=== PATIENT | female | born 1970 | race Caucasian/White ===

== ENCOUNTER → 2016-06-11 | Outpatient (REF) | payer BC ==
[2016-06-11 12:12] LABS: ALBUMIN 3.5 GM/DL (3.2-5.2); ALBUMIN/GLOBULIN RATIO 1.09 (1.00-1.93); ALKALINE PHOSPHATASE 74 U/L (45-117); ALT/SGPT 42 U/L (12-78); ANION GAP 6 MEQ/L (8-16); AST/SGOT 27 U/L (15-37); BILIRUBIN,TOTAL 0.3 MG/DL (0.2-1.0); BLOOD UREA NITROGEN 17 MG/DL (7-18); CALCIUM LEVEL 9.6 MG/DL (8.5-10.1); CARBON DIOXIDE LEVEL 30 MEQ/L (21-32); CHLORIDE LEVEL 108 MEQ/L (98-107); GLOMERULAR FILTRATION RATE > 60.0 (>58); GLUCOSE, FASTING 77 MG/DL (70-105); POTASSIUM SERUM 5.1 MEQ/L (3.5-5.1); SODIUM LEVEL 144 MEQ/L (136-145); TOTAL PROTEIN 6.7 GM/DL (6.4-8.2)
[2016-06-13 00:06] LABS: %CD3+CD4+CD8+ 1.9 % (Not Estab.); %CD3+CD4+CD8- 26.6 % (Not Estab.); %CD3+CD4-CD8+ 44.5 % (Not Estab.); ABS CD3+CD4+CD8+ 29 /uL (Not Estab.); ABS CD3+CD4+CD8- 399 /uL (Not Estab.); ABS CD3+CD4-CD8+ 668 /uL (Not Estab.); ABS CD3+CD4-CD8- 15 /uL (Not Estab.); Eosinophils 1 % (.); HCT 41.4 % (34.0-46.6); HGB 13.8 g/dL (11.1-15.9); Monocytes 9 % (.); Neutrophils 55 % (.); WBC 4.3 x10E3/uL (3.4-10.8)
== END ==
LOC: M SFHCPLAZ 11:29
PROVIDERS: ATTEND Internal Medicine Infectious Disease
DX: B20 Human immunodeficiency virus [HIV] disease (principal)

== ENCOUNTER → 2016-10-21 | Outpatient (REF) | payer BC ==
[2016-10-21 12:12] LABS: ALBUMIN 3.3 GM/DL (3.2-5.2); ALBUMIN/GLOBULIN RATIO 0.97 (1.00-1.93); ALKALINE PHOSPHATASE 76 U/L (45-117); ALT/SGPT 38 U/L (12-78); ANION GAP 5 MEQ/L (8-16); AST/SGOT 30 U/L (15-37); BILIRUBIN,TOTAL 0.3 MG/DL (0.2-1.0); BLOOD UREA NITROGEN 19 MG/DL (7-18); CALCIUM LEVEL 9.2 MG/DL (8.5-10.1); CARBON DIOXIDE LEVEL 31 MEQ/L (21-32); CHLORIDE LEVEL 105 MEQ/L (98-107); CREATININE FOR GFR 0.73 MG/DL (0.55-1.02); GLOMERULAR FILTRATION RATE > 60.0 (>58); GLUCOSE, FASTING 61 MG/DL (70-105); MAGNESIUM LEVEL 2.3 MG/DL (1.8-2.4); POTASSIUM SERUM 4.3 MEQ/L (3.5-5.1); SODIUM LEVEL 141 MEQ/L (136-145); TOTAL PROTEIN 6.7 GM/DL (6.4-8.2)
[2016-10-24 00:07] LABS: %CD3+CD4+CD8- 32.6 % (Not Estab.); %CD3+CD4-CD8+ 40.2 % (Not Estab.); %CD3+CD4-CD8- 1.1 % (Not Estab.); ABS CD3+CD4+CD8+ 26 /uL (Not Estab.); ABS CD3+CD4+CD8- 424 /uL (Not Estab.); ABS CD3+CD4-CD8+ 523 /uL (Not Estab.); ABS CD3+CD4-CD8- 14 /uL (Not Estab.); CD4/CD8 NYSDOH RATIO 0.81 (Not Estab.); Eosinophils 2 % (.); HCT 40.8 % (34.0-46.6); HGB 13.4 g/dL (11.1-15.9); Monocytes 10 % (.); Neutrophils 60 % (.); WBC 4.8 x10E3/uL (3.4-10.8)
== END ==
LOC: M SFHCPLAZ 08:46
PROVIDERS: ATTEND Internal Medicine Infectious Disease
DX: B20 Human immunodeficiency virus [HIV] disease (principal)

== ENCOUNTER → 2017-02-17 | Outpatient (REF) | payer BC ==
[2017-02-17 12:26] LABS: ALBUMIN 3.4 GM/DL (3.2-5.2); ALKALINE PHOSPHATASE 73 U/L (45-117); ALT/SGPT 52 U/L (12-78); ANION GAP 3 MEQ/L (8-16); AST/SGOT 26 U/L (15-37); BILIRUBIN,TOTAL 0.4 MG/DL (0.2-1.0); BLOOD UREA NITROGEN 16 MG/DL (7-18); CARBON DIOXIDE LEVEL 31 MEQ/L (21-32); CHLORIDE LEVEL 107 MEQ/L (98-107); CHOLESTEROL LEVEL 129 MG/DL (<200); CREATININE FOR GFR 0.76 MG/DL (0.55-1.02); GLOMERULAR FILTRATION RATE > 60.0 (>58); GLUCOSE, FASTING 79 MG/DL (70-105); POTASSIUM SERUM 4.4 MEQ/L (3.5-5.1); SODIUM LEVEL 141 MEQ/L (136-145); TOTAL PROTEIN 6.8 GM/DL (6.4-8.2); TRIGLYCERIDES LEVEL 92 MG/DL (<150)
[2017-02-20 00:07] LABS: Eosinophils 0 % (Not Estab.); HCT 42.1 % (34.0-46.6); HGB 13.7 g/dL (11.1-15.9); Monocytes 7 % (Not Estab.); Neutrophils 61 % (Not Estab.); WBC 4.6 x10E3/uL (3.4-10.8)
== END ==
LOC: M SFHCPLAZ 09:39
PROVIDERS: ATTEND Internal Medicine Infectious Disease
DX: B20 Human immunodeficiency virus [HIV] disease (principal); R04.0 Epistaxis

== ENCOUNTER → 2017-04-04 | Outpatient (REF) | payer BC ==
[2017-04-04 19:28] LABS: ALBUMIN 3.4 GM/DL (3.2-5.2); ALKALINE PHOSPHATASE 60 U/L (45-117); ALT/SGPT 36 U/L (12-78); AST/SGOT 25 U/L (7-37); BILIRUBIN,DIRECT < 0.1 MG/DL (0.0-0.2); BILIRUBIN,TOTAL 0.2 MG/DL (0.2-1.0); TOTAL PROTEIN 6.5 GM/DL (6.4-8.2)
== END ==
LOC: M SFHCLERA 13:34
PROVIDERS: ATTEND Dermatology
DX: L60.9 Nail disorder, unspecified (principal)

== ENCOUNTER → 2017-06-02 | Outpatient (REF) | payer BC ==
[2017-06-02 22:00] LABS: ALBUMIN/GLOBULIN RATIO 1.18 (1.00-1.93); ALKALINE PHOSPHATASE 79 U/L (45-117); ALT/SGPT 34 U/L (12-78); AST/SGOT 31 U/L (7-37); BILIRUBIN,DIRECT < 0.1 MG/DL (0.0-0.2); BILIRUBIN,TOTAL 0.2 MG/DL (0.2-1.0); TOTAL PROTEIN 7.4 GM/DL (6.4-8.2)
== END ==
LOC: M SFHCLERA 18:26
DX: L60.9 Nail disorder, unspecified (principal)
CPT/HCPCS: 80076

== ENCOUNTER → 2017-06-30 | Outpatient (REF) | payer BC ==
[2017-06-30 12:50] LABS: ALBUMIN 3.8 GM/DL (3.2-5.2); ALBUMIN/GLOBULIN RATIO 1.12 (1.00-1.93); ALKALINE PHOSPHATASE 79 U/L (45-117); ALT/SGPT 35 U/L (12-78); ANION GAP 7 MEQ/L (8-16); AST/SGOT 23 U/L (7-37); BILIRUBIN,TOTAL 0.3 MG/DL (0.2-1.0); BLOOD UREA NITROGEN 23 MG/DL (7-18); CALCIUM LEVEL 9.3 MG/DL (8.5-10.1); CARBON DIOXIDE LEVEL 29 MEQ/L (21-32); CHLORIDE LEVEL 107 MEQ/L (98-107); CREATININE FOR GFR 0.84 MG/DL (0.55-1.30); GLOMERULAR FILTRATION RATE > 60.0 (>58); GLUCOSE, FASTING 80 MG/DL (70-100); POTASSIUM SERUM 4.4 MEQ/L (3.5-5.1); SODIUM LEVEL 143 MEQ/L (136-145); TOTAL PROTEIN 7.2 GM/DL (6.4-8.2)
[2017-06-30 12:54] LABS: TOTAL 25(OH) VITAMIN D 23.5 NG/ML (30.0-100.0)
[2017-06-30 12:55] LABS: VITAMIN B12 LEVEL 1174 PG/ML
[2017-06-30 12:56] LABS: FOLATE > 24.0 NG/ML
[2017-06-30 13:04] LABS: APPEARANCE, URINE HAZY (CLEAR); BACTERIA, URINE AUTO NEGATIVE (NEGATIVE); BILIRUBIN, URINE AUTO NEGATIVE (NEGATIVE); BLOOD, URINE BLOOD NEGATIVE (NEGATIVE); COLOR, URINE YELLOW (YELLOW); GLUCOSE, URINE (UA) AUTO NEGATIVE (NEGATIVE); KETONE, URINE AUTO NEGATIVE (NEGATIVE); LEUKOCYTE ESTERASE, URINE AUTO NEGATIVE (NEGATIVE); MUCUS, URINE SMALL (NEGATIVE); NITRITE, URINE AUTO NEGATIVE (NEGATIVE); PROTEIN, URINE AUTO NEGATIVE (NEGATIVE); RBC, URINE AUTO 0 /HPF (0-3); SPECIFIC GRAVITY URINE AUTO 1.027 (1.002-1.035); SQUAMOUS EPITHELIAL CELL UR AU 0 /HPF (0-6); UROBILINOGEN, URINE AUTO 0.2 mg/dL (0.0-2.0); WBC, URINE AUTO 0 /HPF (0-3)
[2017-06-30 13:54] LABS: CHLAMYDIA DNA AMPLIFICATION NEGATIVE (NEGATIVE); GC DNA AMPLIFICATION NEGATIVE (NEGATIVE)
[2017-07-02 08:18] LABS: QUANTIFERON GOLD TB Negative (Negative); TB Test (QFT) Antigen 0.03 IU/mL (.); TB Test (QFT) Mitogen >10.00 IU/mL (.); TB Test (QFT) Nil 0.03 IU/mL (.)
[2017-07-02 14:13] LABS: % CD8 Pos Lymph 41.3 % (12.0-35.5); %CD4 Pos Lymphs 33.1 % (30.8-58.5); ABS Lymphs 1.4 x10E3/uL (0.7-3.1); ABS Monocytes 0.4 x10E3/uL (0.1-0.9); Abs CD4 Helper 463 /uL (359-1519); Abs CD8 Suppres 578 /uL (109-897); Eosinophils 1 % (Not Estab.); HCT 43.6 % (34.0-46.6); HGB 14.3 g/dL (11.1-15.9); HIV-1 RNA PCR QUANT 2 LC550285 <20 copies/mL (.); Immature Grans 0 % (Not Estab.); Lymphocytes 29 % (Not Estab.); MCHC 32.8 g/dL (31.5-35.7); MCV 104 fL (79-97); Monocytes 9 % (Not Estab.); Neutrophils 61 % (Not Estab.); Platelets 189 x10E3/uL (150-379); RBC 4.21 x10E6/uL (3.77-5.28); RDW 14.5 % (12.3-15.4); WBC 4.9 x10E3/uL (3.4-10.8)
== END ==
LOC: M SFHCPLAZ 08:30
DX: B20 Human immunodeficiency virus [HIV] disease (principal)
CPT/HCPCS: 82746

== ENCOUNTER → 2017-07-02 | Outpatient (REF) | payer BC | LOC: M SFHCLERA 15:17 | DX: L30.8 Other specified dermatitis (principal) | CPT/HCPCS: 87186 ==

== ENCOUNTER → 2017-09-23 | Outpatient (REF) | payer BC | LOC: M SFHCPLAZ 11:27 | DX: R23.8 Other skin changes (principal); J02.9 Acute pharyngitis, unspecified | CPT/HCPCS: 87529 ==

== ENCOUNTER → 2017-10-06 | Outpatient (REF) | payer BC | LOC: M SFHCLERA 21:00 | DX: L73.8 Other specified follicular disorders (principal) | CPT/HCPCS: 87077 ==

== ENCOUNTER → 2017-11-03 | Outpatient (REF) | payer BC ==
[2017-11-03 11:50] LABS: TOTAL 25(OH) VITAMIN D 41.5 NG/ML (30.0-100.0); VITAMIN B12 LEVEL 714 PG/ML (247-911)
[2017-11-03 12:23] LABS: ALBUMIN 3.3 GM/DL (3.2-5.2); ALKALINE PHOSPHATASE 75 U/L (45-117); ALT/SGPT 30 U/L (12-78); ANION GAP 8 MEQ/L (8-16); AST/SGOT 27 U/L (7-37); BILIRUBIN,TOTAL 0.2 MG/DL (0.2-1.0); BLOOD UREA NITROGEN 14 MG/DL (7-18); CALCIUM LEVEL 9.3 MG/DL (8.5-10.1); CARBON DIOXIDE LEVEL 28 MEQ/L (21-32); CHLORIDE LEVEL 109 MEQ/L (98-107); CREATININE FOR GFR 0.76 MG/DL (0.55-1.30); FERRITIN 13 NG/ML (8-252); GLOMERULAR FILTRATION RATE > 60.0 (>58); GLUCOSE, FASTING 81 MG/DL (70-100); IRON (FE) 62 UG/DL (50-170); SODIUM LEVEL 145 MEQ/L (136-145); TOTAL IRON BINDING CAPACITY 388 UG/DL (250-450); TOTAL PROTEIN 6.6 GM/DL (6.4-8.2)
[2017-11-05 14:12] LABS: % CD8 Pos Lymph 40.6 % (12.0-35.5); %CD4 Pos Lymphs 30.6 % (30.8-58.5); ABS Eosinophils 0.1 x10E3/uL (0.0-0.4); ABS Lymphs 1.2 x10E3/uL (0.7-3.1); ABS Monocytes 0.3 x10E3/uL (0.1-0.9); ABS Neutophils 2.2 x10E3/uL (1.4-7.0); Abs CD4 Helper 367 /uL (359-1519); Abs CD8 Suppres 487 /uL (109-897); CD4/CD8 Ratio 0.75 (0.92-3.72); Eosinophils 2 % (Not Estab.); HCT 40.5 % (34.0-46.6); HGB 13.6 g/dL (11.1-15.9); HIV-1 RNA PCR QUANT 2 LC550285 <20 copies/mL (.); Immature Grans 0 % (Not Estab.); Lymphocytes 32 % (Not Estab.); MCHC 33.6 g/dL (31.5-35.7); MCV 101 fL (79-97); Monocytes 8 % (Not Estab.); Neutrophils 58 % (Not Estab.); Platelets 157 x10E3/uL (150-379); RDW 14.6 % (12.3-15.4); WBC 3.8 x10E3/uL (3.4-10.8)
== END ==
LOC: M SFHCPLAZ 08:27
DX: B20 Human immunodeficiency virus [HIV] disease (principal)
CPT/HCPCS: 83550

== ENCOUNTER → 2018-05-26 | Outpatient (REF) | payer OTHER ==
[2018-05-26 18:56] LABS: ALBUMIN 3.6 GM/DL (3.2-5.2); ALT/SGPT 36 U/L (12-78); BILIRUBIN,TOTAL 0.4 MG/DL (0.2-1.0); BLOOD UREA NITROGEN 16 MG/DL (7-18); CALCIUM LEVEL 9.4 MG/DL (8.5-10.1); CARBON DIOXIDE LEVEL 30 MEQ/L (21-32); CHLORIDE LEVEL 106 MEQ/L (98-107); CREATININE FOR GFR 0.91 MG/DL (0.55-1.30); GLOMERULAR FILTRATION RATE > 60.0 (>58); GLUCOSE, FASTING 91 MG/DL (70-100); POTASSIUM SERUM 4.8 MEQ/L (3.5-5.1); SODIUM LEVEL 142 MEQ/L (136-145)
[2018-05-26 19:31] LABS: APPEARANCE, URINE CLEAR (CLEAR); BACTERIA, URINE AUTO NEGATIVE (NEGATIVE); BILIRUBIN, URINE AUTO NEGATIVE (NEGATIVE); BLOOD, URINE BLOOD NEGATIVE (NEGATIVE); COLOR, URINE YELLOW (YELLOW); GLUCOSE, URINE (UA) AUTO NEGATIVE (NEGATIVE); KETONE, URINE AUTO TRACE mg/dL (NEGATIVE); LEUKOCYTE ESTERASE, URINE AUTO NEGATIVE (NEGATIVE); NITRITE, URINE AUTO NEGATIVE (NEGATIVE); PROTEIN, URINE AUTO NEGATIVE (NEGATIVE); RBC, URINE AUTO 1 /HPF (0-3); SPECIFIC GRAVITY URINE AUTO 1.015 (1.002-1.035); SQUAMOUS EPITHELIAL CELL UR AU 0 /HPF (0-6); UROBILINOGEN, URINE AUTO 0.2 mg/dL (0.0-2.0); WBC, URINE AUTO 1 /HPF (0-3)
[2018-05-30 00:08] LABS: % CD8 Pos Lymph 42.3 % (12.0-35.5); %CD4 Pos Lymphs 31.6 % (30.8-58.5); ABS Eosinophils 0.1 x10E3/uL (0.0-0.4); ABS Lymphs 1.6 x10E3/uL (0.7-3.1); ABS Monocytes 0.4 x10E3/uL (0.1-0.9); ABS Neutophils 3.5 x10E3/uL (1.4-7.0); Abs CD4 Helper 506 /uL (359-1519); Abs CD8 Suppres 677 /uL (109-897); CD4/CD8 Ratio 0.75 (0.92-3.72); Eosinophils 1 % (Not Estab.); HCT 43.6 % (34.0-46.6); HIV-1 RNA PCR QUANT 2 LC550285 <20 copies/mL (.); Immature Grans 0 % (Not Estab.); Lymphocytes 29 % (Not Estab.); MCH 33.2 pg (26.6-33.0); MCHC 32.1 g/dL (31.5-35.7); MCV 103 fL (79-97); Monocytes 7 % (Not Estab.); Neutrophils 63 % (Not Estab.); Platelets 202 x10E3/uL (150-379); RBC 4.22 x10E6/uL (3.77-5.28); RDW 13.8 % (12.3-15.4); WBC 5.6 x10E3/uL (3.4-10.8)
== END ==
LOC: M SFHCPLAZ 13:04
PROVIDERS: ATTEND Internal Medicine Infectious Disease
DX: B20 Human immunodeficiency virus [HIV] disease (principal); R10.9 Unspecified abdominal pain

== ENCOUNTER → 2018-07-13 | Outpatient (CLI) | payer OTHER ==
--- NOTE | 2018-07-14 08:26 | REP ---
MAXILLOFACIAL CT WITHOUT CONTRAST: HISTORY: Acute recurrent maxillary sinusitis. COMPARISON: 09/16/2015 Minimal mucosal thickening is present in the ethmoid and left maxillary sinuses. The remaining sinuses are clear. The osteomeatal units are patent. The middle and inferior nasal turbinates are partially paradoxical. There is minimal deviation of the nasal septum to the right. A small spur is present arising from the right side of the nasal septum. The spur abuts the right inferior nasal turbinate. The cribriform plate, medial caraballo of the orbits and optic canals are intact. The carotid canals form a segment of the posterolateral caraballo of the sphenoid sinus. The sphenoid sinus septum inserts into the internal carotid canals caraballo. IMPRESSION : Sinus mucosal thickening as described above. Electronically Signed by Reji Grossman MD 07/14/2018 08:44 A
== END ==
LOC: M RAD 16:54
PROVIDERS: ATTEND Otolaryngology
DX: J34.89 Other specified disorders of nose and nasal sinuses (principal)

== ENCOUNTER → 2018-09-28 | Outpatient (REF) | payer OTHER ==
[2018-09-28 13:02] LABS: ALBUMIN 3.6 GM/DL (3.2-5.2); ALT/SGPT 59 U/L (12-78); BILIRUBIN,TOTAL 0.3 MG/DL (0.2-1.0); BLOOD UREA NITROGEN 12 MG/DL (7-18); CALCIUM LEVEL 9.3 MG/DL (8.5-10.1); CARBON DIOXIDE LEVEL 30 MEQ/L (21-32); CHLORIDE LEVEL 108 MEQ/L (98-107); CREATININE FOR GFR 0.76 MG/DL (0.55-1.30); GLOMERULAR FILTRATION RATE > 60.0 (>58); GLUCOSE, FASTING 75 MG/DL (70-100); IRON (FE) 85 UG/DL (50-170); POTASSIUM SERUM 4.2 MEQ/L (3.5-5.1); SODIUM LEVEL 142 MEQ/L (136-145)
[2018-09-28 13:10] LABS: TOTAL 25(OH) VITAMIN D 23.3 NG/ML (30.0-100.0)
[2018-09-28 13:11] LABS: FOLATE 15.2 NG/ML; FOLLICLE STIMULATING HORMONE 7.5 mIU/mL; VITAMIN B12 LEVEL 476 PG/ML
[2018-10-01 14:14] LABS: % CD8 Pos Lymph 44.7 % (12.0-35.5); %CD4 Pos Lymphs 32.4 % (30.8-58.5); ABS Lymphs 1.5 x10E3/uL (0.7-3.1); ABS Monocytes 0.3 x10E3/uL (0.1-0.9); ABS Neutophils 2.6 x10E3/uL (1.4-7.0); Abs CD4 Helper 486 /uL (359-1519); Abs CD8 Suppres 671 /uL (109-897); CD4/CD8 Ratio 0.72 (0.92-3.72); Eosinophils 1 % (Not Estab.); HCT 41.6 % (34.0-46.6); HGB 13.6 g/dL (11.1-15.9); HIV-1 RNA PCR QUANT 2 LC550285 <20 copies/mL (.); Immature Grans 0 % (Not Estab.); Lymphocytes 34 % (Not Estab.); MCH 32.5 pg (26.6-33.0); MCHC 32.7 g/dL (31.5-35.7); MCV 99 fL (79-97); Monocytes 7 % (Not Estab.); Neutrophils 58 % (Not Estab.); Platelets 149 x10E3/uL (150-379); RBC 4.19 x10E6/uL (3.77-5.28); RDW 14.1 % (12.3-15.4); WBC 4.4 x10E3/uL (3.4-10.8)
== END ==
LOC: M SFHCPLAZ 08:32
PROVIDERS: ATTEND Internal Medicine Infectious Disease
DX: B20 Human immunodeficiency virus [HIV] disease (principal); R30.0 Dysuria; Z98.84 Bariatric surgery status; N95.1 Menopausal and female climacteric states

== ENCOUNTER → 2018-12-28 | Outpatient (REF) | payer OTHER ==
[2018-12-28 11:59] LABS: APPEARANCE, URINE CLEAR (CLEAR); BACTERIA, URINE AUTO NEGATIVE (NEGATIVE); BILIRUBIN, URINE AUTO NEGATIVE (NEGATIVE); BLOOD, URINE BLOOD NEGATIVE (NEGATIVE); COLOR, URINE YELLOW (YELLOW); GLUCOSE, URINE (UA) AUTO NEGATIVE (NEGATIVE); KETONE, URINE AUTO NEGATIVE (NEGATIVE); LEUKOCYTE ESTERASE, URINE AUTO NEGATIVE (NEGATIVE); MUCUS, URINE SMALL (NEGATIVE); NITRITE, URINE AUTO NEGATIVE (NEGATIVE); PROTEIN, URINE AUTO NEGATIVE (NEGATIVE); RBC, URINE AUTO 1 /HPF (0-3); SPECIFIC GRAVITY URINE AUTO 1.021 (1.002-1.035); SQUAMOUS EPITHELIAL CELL UR AU 0 /HPF (0-6); UROBILINOGEN, URINE AUTO 0.2 mg/dL (0.0-2.0); WBC, URINE AUTO 0 /HPF (0-3)
== END ==
LOC: M SFHCPLAZ 11:35
PROVIDERS: ATTEND Internal Medicine Infectious Disease
DX: R30.0 Dysuria (principal)

== ENCOUNTER → 2019-10-12 | Outpatient (REF) | payer OTHER ==
[2019-10-12 19:19] LABS: ALBUMIN 3.7 GM/DL (3.2-5.2); ALT/SGPT 35 U/L (12-78); BILIRUBIN,TOTAL 0.3 MG/DL (0.2-1.0); BLOOD UREA NITROGEN 18 MG/DL (7-18); CALCIUM LEVEL 9.4 MG/DL (8.5-10.1); CARBON DIOXIDE LEVEL 28 MEQ/L (21-32); CHLORIDE LEVEL 109 MEQ/L (98-107); CHOLESTEROL LEVEL 134 MG/DL (<200); CHOLESTEROL RISK RATIO 2.576 (<5); CREATININE FOR GFR 0.88 MG/DL (0.55-1.30); GLOMERULAR FILTRATION RATE > 60.0 (>58); GLUCOSE, FASTING 79 MG/DL (70-100); HDL CHOLESTEROL 52 MG/DL (>40); LDL CHOLESTEROL 66 MG/DL (<100); NON-HDL-C 82 MG/DL; POTASSIUM SERUM 5.2 MEQ/L (3.5-5.1); SODIUM LEVEL 143 MEQ/L (136-145); TOTAL PROTEIN 6.9 GM/DL (6.4-8.2); TRIGLYCERIDES LEVEL 78 MG/DL (<150)
[2019-10-12 19:25] LABS: TOTAL 25(OH) VITAMIN D 62.8 NG/ML (30.0-100.0)
[2019-10-12 19:26] LABS: VITAMIN B12 LEVEL 954 PG/ML
[2019-10-13 07:16] LABS: FOLATE 15.4 NG/ML
[2019-10-15 23:07] LABS: % CD8 Pos Lymph 44.2 % (12.0-35.5); %CD4 Pos Lymphs 31.6 % (30.8-58.5); ABS Eosinophils 0.1 x10E3/uL (0.0-0.4); ABS Lymphs 1.4 x10E3/uL (0.7-3.1); ABS Monocytes 0.4 x10E3/uL (0.1-0.9); ABS Neutophils 2.3 x10E3/uL (1.4-7.0); Abs CD4 Helper 442 /uL (359-1519); Abs CD8 Suppres 619 /uL (109-897); CD4/CD8 Ratio 0.71 (0.92-3.72); Eosinophils 2 % (Not Estab.); HCT 42.3 % (34.0-46.6); HGB 13.5 g/dL (11.1-15.9); HIV-1 RNA PCR QUANT 2 LC550285 <20 copies/mL (.); Immature Grans 0 % (Not Estab.); Lymphocytes 34 % (Not Estab.); MCH 32.9 pg (26.6-33.0); MCHC 31.9 g/dL (31.5-35.7); MCV 103 fL (79-97); Monocytes 11 % (Not Estab.); Neutrophils 53 % (Not Estab.); Platelets 174 x10E3/uL (150-450); RDW 13.1 % (11.7-15.4); WBC 4.2 x10E3/uL (3.4-10.8)
== END ==
LOC: M SFHCPLAZ 08:58
PROVIDERS: ATTEND Internal Medicine Infectious Disease
DX: B20 Human immunodeficiency virus [HIV] disease (principal); E55.9 Vitamin D deficiency, unspecified; Z98.84 Bariatric surgery status

== ENCOUNTER → 2019-10-12 | Outpatient (CLI) | payer OTHER ==
--- NOTE | 2019-10-13 02:11 | REPPI ---
Clinical: Sciatica. Technique: Single AP view of the pelvis. Findings: Osseous structures are intact and there is no evidence for acute fracture dislocation. Mild joint space narrowing to the left hip cannot be excluded and should be correlated with physical examination. Bilateral sacroiliac joints and right hip appear intact and normal. Phleboliths identified in the pelvis. Impression: Minimal joint space narrowing to the left hip cannot be excluded. Electronically Signed by Aris Pereira MD 10/13/2019 02:03 A
--- NOTE | 2019-10-13 02:20 | REPPI ---
Clinical: Sciatica. Technique: AP, lateral, coned-down views of the lumbosacral spine. Findings: Lateral view demonstrates focal early advanced degenerative change at the L2-3 level including endplate sclerosis, near complete disc space obliteration, anterior spurring, and mild 5 mm of retrolisthesis. Moderate degenerative changes at L3-4 through L5-S1 include elements of endplate sclerosis with early anterior spurring and mild hypertrophic facet changes. Mild disc space narrowing at L5-S1. No evidence for acute fracture / compression injury. Impression: Degenerative spondylosis primarily involving L3-4 as described above. Electronically Signed by Aris Pereira MD 10/13/2019 02:12 A
== END ==
LOC: M PLAIMG 08:59
PROVIDERS: ATTEND Internal Medicine Infectious Disease
DX: M53.86 Other specified dorsopathies, lumbar region (principal)

== ENCOUNTER → 2020-04-03 | Outpatient (CLI) | payer OTHER ==
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
== END ==
LOC: M PAIN 08:30
PROVIDERS: ATTEND Family Medicine
DX: M47.816 Spondylosis without myelopathy or radiculopathy, lumbar region (principal); B20 Human immunodeficiency virus [HIV] disease; F32.9 Major depressive disorder, single episode, unspecified; G47.00 Insomnia, unspecified; E88.81 Metabolic syndrome and other insulin resistance; Z79.891 Long term (current) use of opiate analgesic; Z79.899 Other long term (current) drug therapy; Z98.84 Bariatric surgery status

== ENCOUNTER → 2020-04-05 | Outpatient (CLI) | payer OTHER ==
[~2020-04-05] MED LIST: GASTROGRAFIN SOLUTION 30ML (Q9963) As Ordered ONE; ISOVUE-370 76% 100ML VIAL As Ordered ONE
--- NOTE | 2020-04-06 05:59 | REP ---
INDICATION: R10.19- ABD PAIN. COMPARISON: 07/20/2014 TECHNIQUE: Axial contrast-enhanced images from the lung bases to the pubic symphysis using 100 cc Isovue 370 intravenous contrast material. Coronal and sagittal reformations obtained. This CT examination was performed using the following dose reduction techniques: Automated exposure control, adjustment of mA and/or kv according to the patient's size, and the use of iterative reconstruction technique. FINDINGS: Liver, spleen, pancreas, bilateral adrenal glands and kidneys are normal. Evidence for prior gastric bypass surgery and cholecystectomy noted. There is no evidence for bowel obstruction. Normal terminal ileum, cecum and appendix are identified in the right lower quadrant. Mucosal thickening involving the sigmoid colon and rectosigmoid is appreciated and while this may represent normal collapse, a mild colitis cannot be excluded. No free air. No ascites or drainable collection/abscess. Pelvis demonstrates normal bladder and evidence for prior hysterectomy. No ascites. No free air. No intraperitoneal or retroperitoneal adenopathy. Abdominal aorta and vasculature appear normal. Musculoskeletal structures are intact and without acute osseous abnormality. IMPRESSION: 1. Cannot exclude infectious/inflammatory colitis involving the sigmoid colon to rectosigmoid. 2. No further acute abdominopelvic pathology appreciated. <Electronically signed by rAis Pereira > 04/06/20 [id number]
== END ==
LOC: M RAD 11:03
PROVIDERS: ATTEND Nurse Practitioner Women's Health
DX: R10.9 Unspecified abdominal pain (principal)
CPT/HCPCS: 74177; Q9963; Q9967

== ENCOUNTER → 2020-04-06 | Outpatient (REF) | payer OTHER ==
[2020-04-06 11:25] LABS: ALBUMIN 3.5 GM/DL (3.2-5.2); ALT/SGPT 26 U/L (12-78); BILIRUBIN,TOTAL 0.3 MG/DL (0.2-1.0); BLOOD UREA NITROGEN 10 MG/DL (7-18); CALCIUM LEVEL 9.3 MG/DL (8.5-10.1); CARBON DIOXIDE LEVEL 30 MEQ/L (21-32); CHLORIDE LEVEL 107 MEQ/L (98-107); CREATININE FOR GFR 0.81 MG/DL (0.55-1.30); FREE T4 0.74 NG/DL (0.76-1.46); GLOMERULAR FILTRATION RATE > 60.0 (>58); GLUCOSE, FASTING 83 MG/DL (70-100); POTASSIUM SERUM 4.9 MEQ/L (3.5-5.1); SODIUM LEVEL 139 MEQ/L (136-145); TOTAL PROTEIN 6.6 GM/DL (6.4-8.2)
[2020-04-06 11:40] LABS: TOTAL 25(OH) VITAMIN D 37.6 NG/ML (30.0-100.0)
[2020-04-14 14:08] LABS: % CD8 Pos Lymph 40.9 % (12.0-35.5); %CD4 Pos Lymphs 37.1 % (30.8-58.5); ABS Eosinophils 0.1 x10E3/uL (0.0-0.4); ABS Lymphs 1.3 x10E3/uL (0.7-3.1); ABS Monocytes 0.4 x10E3/uL (0.1-0.9); ABS Neutophils 2.1 x10E3/uL (1.4-7.0); Abs CD4 Helper 482 /uL (359-1519); Abs CD8 Suppres 532 /uL (109-897); CD4/CD8 Ratio 0.91 (0.92-3.72); Eosinophils 2 % (Not Estab.); HCT 39.8 % (34.0-46.6); HGB 13.3 g/dL (11.1-15.9); HIV-1 RNA PCR QUANT 2 LC550285 <20 copies/mL (.); Immature Grans 0 % (Not Estab.); Lymphocytes 34 % (Not Estab.); MCH 32.5 pg (26.6-33.0); MCHC 33.4 g/dL (31.5-35.7); MCV 97 fL (79-97); Monocytes 10 % (Not Estab.); Neutrophils 53 % (Not Estab.); Platelets 175 x10E3/uL (150-450); RBC 4.09 x10E6/uL (3.77-5.28); RDW 13.4 % (11.7-15.4); VITAMIN E(ALPHA TOCOPHEROL) 10.6 mg/L (7.0-25.1); VITAMIN E(GAMMA TOCOPHEROL) 0.3 mg/L (0.5-5.5); WBC 3.9 x10E3/uL (3.4-10.8)
== END ==
LOC: M SFHCPLAZ 08:59
PROVIDERS: ATTEND Internal Medicine Infectious Disease
DX: B20 Human immunodeficiency virus [HIV] disease (principal); R79.89 Other specified abnormal findings of blood chemistry; E55.9 Vitamin D deficiency, unspecified; G44.229 Chronic tension-type headache, not intractable

== ENCOUNTER → 2020-11-02 | Outpatient (REF) | payer OTHER ==
[2020-11-02 14:04] LABS: APPEARANCE, URINE CLOUDY (CLEAR); BACTERIA, URINE AUTO 3+ (NEGATIVE); BILIRUBIN, URINE AUTO NEGATIVE (NEGATIVE); BLOOD, URINE BLOOD 1+ (NEGATIVE); COLOR, URINE YELLOW (YELLOW); GLUCOSE, URINE (UA) AUTO NEGATIVE (NEGATIVE); KETONE, URINE AUTO NEGATIVE (NEGATIVE); LEUKOCYTE ESTERASE, URINE AUTO 3+ (NEGATIVE); MUCUS, URINE SMALL (NEGATIVE); NITRITE, URINE AUTO NEGATIVE (NEGATIVE); PROTEIN, URINE AUTO 1+ mg/dL (NEGATIVE); RBC, URINE AUTO 6 /HPF (0-3); SPECIFIC GRAVITY URINE AUTO 1.016 (1.002-1.035); SQUAMOUS EPITHELIAL CELL UR AU 0 /HPF (0-6); TRANSITIONAL EPITHELIAL AUTO 1 /HPF; UROBILINOGEN, URINE AUTO 0.2 mg/dL (0.0-2.0); WBC, URINE AUTO TNTC /HPF (0-3)
== END ==
LOC: M SFHCPLAZ 12:55
PROVIDERS: ATTEND Internal Medicine Infectious Disease
DX: R35.0 Frequency of micturition (principal)

== ENCOUNTER → 2020-12-15 | Outpatient (CLI) | payer OTHER ==
--- NOTE | 2020-12-15 16:07 | REP ---
INDICATION: SOB ABD PAIN. COMPARISON: 04/05/2020 the latest prior TECHNIQUE: Standard helical technique after the intravenous administration of 100 cc Isovue 370 and oral bowel preparatory contrast administration. FINDINGS: The lung bases are clear. The liver, spleen, pancreas, adrenal glands, and kidneys are within normal limits and essentially unchanged from the prior exam. The abdominal aorta and para-aortic regions are within normal limits. Left upper quadrant postoperative changes are again noted secondary to previous bariatric surgery. The bowel loops and the mesenteries are within normal limits. There is no evidence of free fluid or free air. There is no mass or adenopathy. Bone window technique throughout the exam shows stable chronic changes at L2-3. IMPRESSION: There is no evidence of acute disease or significant change compared to the prior exam with findings as described above. <Electronically signed by Vitaly Hernandez > 12/15/20 [id number]
--- NOTE | 2020-12-15 16:11 | REP ---
INDICATION: SOB ABD PAIN COMPARISON: None. TECHNIQUE: Standard helical technique after the intravenous administration of 100 cc Isovue 370. FINDINGS: There is no mediastinal or hilar adenopathy. There are no pleural or pericardial effusions. The imaged osseous structures are within normal limits. Evaluation of the lung bee shows a few peripheral reticulonodular densities bilaterally but right greater than left. This is seen particularly in the apical and upper lobe region. IMPRESSION: Lung field changes as described above. Etiology uncertain. Since are no priors comparison three-month follow-up is suggested. <Electronically signed by Vitaly Hernandez > 12/15/20 0930
== END ==
LOC: M RAD 13:57
PROVIDERS: ATTEND Surgery
DX: R91.8 Other nonspecific abnormal finding of lung field (principal); R06.02 Shortness of breath; R79.89 Other specified abnormal findings of blood chemistry; R10.30 Lower abdominal pain, unspecified
CPT/HCPCS: 71260; 74177; Q9963; Q9967

== ENCOUNTER → 2020-12-28 | Outpatient (CLI) | payer OTHER ==
--- NOTE | 2020-12-28 15:55 | REPMRS ---
Patient History The patient states she had a clinical breast exam in December 2020. No known family history of cancer. Patient states no breast complaints today. Patient has signed MRS History Sheet. Digital Woman Screen Mammo: December 28, 2020 - Exam #: [id number] Bilateral CC and MLO view(s) were taken. Technologist: Bethany Tavarez, Technologist Prior study comparison: January 30, 2015, digital woman screen mammo performed at [facility]. September 19, 2011, digital woman screen mammo performed at [facility]. November 18, 2007, bilateral screening mammogram, performed at [facility]. FINDINGS: There are scattered fibroglandular densities. The Volpara volumetric breast density category is:B. There is a well-circumscribed 8 mm nodule centrally located in the left breast which appears to be a alexa density. This merits further evaluation. It has a notched configuration and may be an intramammary lymph node. There has been no other change in the appearance of the mammogram from the prior studies. There is a mild amount of scattered fibroglandular density which is fairly symmetric. There is no otheraaaaaaaaa interval development of dominant mass, architectural distortion, or grouped microcalcification suggestive of malignancy. 3-D tomosynthesis shows no additional findings. Assessment: BI-RADS/ACR category 0 mammogram, Incomplete. Need additonal imaging evaluation and/or prior mammograms for comparison. Recommendation Ultrasound and special view mammogram of the left breast. This patient's [facility] Lifetime Breast Cancer Risk is estimated at 9.7 %. This mammogram was interpreted with the aid of an FDA-approved computer-aided dectection system. Electronically Signed By: Fredy Barnhart MD 12/28/20 [id number]
== END ==
LOC: M WHC 14:22
PROVIDERS: ATTEND Nurse Practitioner Women's Health
DX: Z12.31 Encounter for screening mammogram for malignant neoplasm of breast (principal)

== ENCOUNTER → 2020-12-28 | Outpatient (REF) | payer OTHER | LOC: M SFHCWAGY 18:07 | PROVIDERS: ATTEND Nurse Practitioner Women's Health | DX: Z12.72 Encounter for screening for malignant neoplasm of vagina (principal); Z87.42 Personal history of other diseases of the female genital tract; R87.620 Atypical squamous cells of undetermined significance on cytologic smear of vagina (ASC-US); R87.810 Cervical high risk human papillomavirus (HPV) DNA test positive | CPT/HCPCS: 87624; G0123 ==

== ENCOUNTER → 2021-01-04 | Outpatient (CLI) | payer OTHER ==
[2021-01-04 14:35] LABS: BASO % 0.5 % (0.0-1.0); EOS # 0.1 10^3/uL (0.0-0.5); EOS % 2.1 % (0.0-3.0); HEMATOCRIT 39.2 % (36.0-47.0); HEMOGLOBIN 12.4 g/dl (12.0-15.5); LYMPH % 23.6 % (24.0-44.0); MEAN CORPUSCULAR HEMOGLOBIN 31.3 pg (27.0-33.0); MEAN CORPUSCULAR HGB CONC 31.6 g/dl (32.0-36.5); MONO # 0.4 10^3/uL (0.0-0.8); MONO % 9.7 % (2.0-8.0); NEUTROPHILS # 2.8 10^3/uL (1.5-8.5); NEUTROPHILS % 64.1 % (36.0-66.0); PLATELET COUNT, AUTOMATED 150 10^3/uL (150-450); RED BLOOD COUNT 3.96 10^6/uL (4.00-5.40); WHITE BLOOD COUNT 4.3 10^3/uL (4.0-10.0)
[2021-01-04 15:18] LABS: ERYTHROCYTE SEDIMENTATION RATE 27 mm/hr (0-30)
== END ==
LOC: M PLALAB 09:11
PROVIDERS: ATTEND Internal Medicine Infectious Disease
DX: R91.8 Other nonspecific abnormal finding of lung field (principal)

== ENCOUNTER → 2021-01-09 | Outpatient (CLI) | payer OTHER ==
--- NOTE | 2021-01-09 15:28 | REP ---
INDICATION: ADDL VIEWS-LEFT BREAST/FIBROGLANDULAR DENSITIES; LEFT BREAST/ADDL VIEWS - FIBROGLANDULAR DENSITIES. COMPARISON: Comparison mammography December 28, 2020 and September 19, 2011. TECHNIQUE: Magnified focal spot-compression CC and MLO views of the left breast a non magnified true mL view is obtained with 3D tomography. Targeted left breast sonography is performed. Are obtained. This mammogram was interpreted with the aid of an FDA-approved computer-aided detection system. FINDINGS: Scattered fibroglandular elements are observed. Is diagnostic images confirm the presence of an 8 mm well-circumscribed relatively low-density nodule in the left breast inferiorly and slightly laterally at approximately the 4 o'clock position. The Volpara volumetric breast density pattern is b. Targeted ultrasound: Targeted left breast sonography is performed 4:00 to 6:00. At the 4 o'clock position there is a 0.5 x 0.3 x 0.6 cm cyst 1.6 cm from the nipple. This is felt to account for the mammographic opacity. No suspicious sonographic finding is seen. IMPRESSION: BIRADS/ACR category 2 benign left breast mammographic and sonographic findings. This patient's Tyrer-Cuzick lifetime breast cancer risk assessment score is 9.7%. RECOMMENDATION: Repeat screening mammography recommended 1 year (for women over 40). The patient letter being requested is M1. <Electronically signed by Fredy Barnhart > 01/09/21 [id number]
== END ==
LOC: M WHC 13:05
PROVIDERS: ATTEND Nurse Practitioner Women's Health
DX: N60.02 Solitary cyst of left breast (principal)
CPT/HCPCS: 76642; 77065; G0279

== ENCOUNTER → 2021-02-01 | Outpatient (CLI) | payer OTHER | LOC: M PLALAB 14:09 | PROVIDERS: ATTEND Internal Medicine Infectious Disease | DX: R93.89 Abnormal findings on diagnostic imaging of other specified body structures (principal) ==

== ENCOUNTER → 2021-02-26 | Outpatient (REF) | payer OTHER | LOC: M LAB REF 16:50 | PROVIDERS: ATTEND Internal Medicine Pulmonary Disease | DX: R06.00 Dyspnea, unspecified (principal) ==

== ENCOUNTER → 2021-03-26 | Outpatient (CLI) | payer OTHER ==
--- NOTE | 2021-03-26 15:56 | REP ---
INDICATION: ABN FINDING OF LUNG COMPARISON: Multiple the latest 12/15/2020 TECHNIQUE: Standard helical technique without contrast FINDINGS: The mediastinum and pulmonary gabriela are unchanged. No mass or adenopathy has developed there are no pleural or pericardial effusions. There is no change in the imaged upper abdomen or imaged osseous structures. Evaluation of the lung bee shows new patchy interstitial and airspace opacities bilaterally particularly peripherally in the upper lung zones and heaviest in the lower lung zones. IMPRESSION: There are new abnormal interstitial and airspace opacities as described above. Does this patient have COVID-19? The rapid development of these findings suggests inflammatory/infectious etiology. <Electronically signed by Vitaly Hernandez > 03/26/21 [id number]
== END ==
LOC: M RAD 15:31
PROVIDERS: ATTEND Internal Medicine Pulmonary Disease
DX: R91.8 Other nonspecific abnormal finding of lung field (principal)

== ENCOUNTER → 2021-04-03 | Outpatient (CLI) | payer OTHER ==
[2021-04-03 17:20] LABS: APPEARANCE, URINE CLEAR (CLEAR); BACTERIA, URINE AUTO NEGATIVE (NEGATIVE); BASO % 0.3 % (0.0-1.0); BILIRUBIN, URINE AUTO NEGATIVE (NEGATIVE); BLOOD, URINE BLOOD NEGATIVE (NEGATIVE); COLOR, URINE YELLOW (YELLOW); EOS # 0.1 10^3/uL (0.0-0.5); GLUCOSE, URINE (UA) AUTO NEGATIVE (NEGATIVE); HEMATOCRIT 40.2 % (36.0-47.0); HEMOGLOBIN 12.8 g/dl (12.0-15.5); KETONE, URINE AUTO NEGATIVE (NEGATIVE); LEUKOCYTE ESTERASE, URINE AUTO NEGATIVE (NEGATIVE); LYMPH # 1.7 10^3/uL (1.5-5.0); LYMPH % 28.3 % (24.0-44.0); MEAN CORPUSCULAR HEMOGLOBIN 31.8 pg (27.0-33.0); MEAN CORPUSCULAR HGB CONC 31.8 g/dl (32.0-36.5); MONO # 0.6 10^3/uL (0.0-0.8); MONO % 9.7 % (2.0-8.0); MUCUS, URINE SMALL (NEGATIVE); NEUTROPHILS # 3.5 10^3/uL (1.5-8.5); NEUTROPHILS % 60.4 % (36.0-66.0); NITRITE, URINE AUTO NEGATIVE (NEGATIVE); PLATELET COUNT, AUTOMATED 248 10^3/uL (150-450); PROTEIN, URINE AUTO NEGATIVE (NEGATIVE); RBC, URINE AUTO 0 /HPF (0-3); RED BLOOD COUNT 4.02 10^6/uL (4.00-5.40); SPECIFIC GRAVITY URINE AUTO 1.019 (1.002-1.035); SQUAMOUS EPITHELIAL CELL UR AU 0 /HPF (0-6); UROBILINOGEN, URINE AUTO 0.2 mg/dL (0.0-2.0); WBC, URINE AUTO 0 /HPF (0-3); WHITE BLOOD COUNT 5.9 10^3/uL (4.0-10.0)
[2021-04-03 17:34] LABS: ALBUMIN 3.3 GM/DL (3.2-5.2); BILIRUBIN,TOTAL 0.2 MG/DL (0.2-1.0); C REACTIVE PROTEIN QUANTITATIV 0.3 MG/DL (0.00-0.30); CALCIUM LEVEL 9.4 MG/DL (8.5-10.1); CREATININE FOR GFR 1.04 MG/DL (0.55-1.30); GLOMERULAR FILTRATION RATE 59.7 (>51); POTASSIUM SERUM 4.9 MEQ/L (3.5-5.1); TOTAL PROTEIN 6.9 GM/DL (6.4-8.2)
[2021-04-03 18:11] LABS: CA19-9 TUMOR MARKER,CARBOHYDRA 2.2 U/ML (<35.0)
[2021-04-03 18:28] LABS: ERYTHROCYTE SEDIMENTATION RATE 30 mm/hr (0-30)
== END ==
LOC: M PLALAB 15:51
PROVIDERS: ATTEND Internal Medicine Pulmonary Disease
DX: R06.00 Dyspnea, unspecified (principal)

== ENCOUNTER → 2021-04-05 | Outpatient (REF) | payer OTHER | LOC: M LAB REF 18:03 | PROVIDERS: ATTEND Dermatology | DX: L82.1 Other seborrheic keratosis (principal) ==

== ENCOUNTER → 2021-04-20 | Outpatient (CLI) | payer OTHER ==
--- NOTE | 2021-04-20 17:38 | REPVR ---
PROCEDURE INFORMATION: Exam: CT Maxillofacial Without Contrast, Sinus Exam date and time: 04/20/2021 5:07 PM Age: 50 years old Clinical indication: Sinusitis; Chronic; Additional info: Acute recurrent maxillary sinusitis TECHNIQUE: Imaging protocol: CT Maxillofacial without contrast. Focus on the sinuses. Radiation optimization: All CT scans at this facility use at least one of these dose optimization techniques: automated exposure control; mA and/or kV adjustment per patient size (includes targeted exams where dose is matched to clinical indication); or iterative reconstruction. COMPARISON: CT Maxilofacial w/out contrast 07/13/2018 5:05 PM FINDINGS: Frontal sinuses: Normal. No air-fluid levels. Ethmoid air cells: Normal. No air-fluid levels. Sphenoid sinuses: Normal. No air-fluid levels. Maxillary sinuses: Normal. No air-fluid levels. Ostiomeatal units are patent. Nasal cavity/Septum: Unremarkable. Orbital cavity: Orbits are normal. Globes are unremarkable. Bones/joints: Unremarkable. Soft tissues: Unremarkable. IMPRESSION: No acute findings in the sinuses. Electronically signed by: Sudarshan Escalante On 04/20/2021 17:37:29 PM
== END ==
LOC: M RAD 16:38
PROVIDERS: ATTEND Internal Medicine Infectious Disease
DX: J01.01 Acute recurrent maxillary sinusitis (principal)

== ENCOUNTER → 2021-05-07 | Outpatient (CLI) | payer OTHER | LOC: M PLAIMG 13:23 | PROVIDERS: ATTEND Internal Medicine Rheumatology | DX: R76.8 Other specified abnormal immunological findings in serum (principal) ==

== ENCOUNTER → 2021-05-07 | Outpatient (REF) | payer OTHER ==
[2021-05-07 18:03] LABS: BASO % 0.6 % (0.0-1.0); EOS # 0.1 10^3/uL (0.0-0.5); EOS % 1.3 % (0.0-3.0); HEMATOCRIT 40.5 % (36.0-47.0); HEMOGLOBIN 12.5 g/dl (12.0-15.5); LYMPH # 1.7 10^3/uL (1.5-5.0); LYMPH % 35.6 % (24.0-44.0); MEAN CORPUSCULAR HEMOGLOBIN 31.6 pg (27.0-33.0); MEAN CORPUSCULAR HGB CONC 30.9 g/dl (32.0-36.5); MEAN CORPUSCULAR VOLUME 102.3 fl (80.0-96.0); MONO # 0.4 10^3/uL (0.0-0.8); MONO % 7.9 % (2.0-8.0); NEUTROPHILS # 2.6 10^3/uL (1.5-8.5); NEUTROPHILS % 54.4 % (36.0-66.0); PLATELET COUNT, AUTOMATED 164 10^3/uL (150-450); RED BLOOD COUNT 3.96 10^6/uL (4.00-5.40); WHITE BLOOD COUNT 4.8 10^3/uL (4.0-10.0)
[2021-05-07 18:28] LABS: ALBUMIN 3.8 GM/DL (3.2-5.2); ALT/SGPT 26 U/L (12-78); BILIRUBIN,TOTAL 0.3 MG/DL (0.2-1.0); BLOOD UREA NITROGEN 11 MG/DL (7-18); CALCIUM LEVEL 9.7 MG/DL (8.5-10.1); CARBON DIOXIDE LEVEL 30 MEQ/L (21-32); CHLORIDE LEVEL 110 MEQ/L (98-107); CREATININE FOR GFR 0.88 MG/DL (0.55-1.30); GLOMERULAR FILTRATION RATE > 60.0 (>51); GLUCOSE, FASTING 110 MG/DL (70-100); LDH LACTATE DEHYDROGENASE 194 U/L (84-246); POTASSIUM SERUM 4.8 MEQ/L (3.5-5.1); SODIUM LEVEL 144 MEQ/L (136-145); TOTAL PROTEIN 7.1 GM/DL (6.4-8.2)
[2021-05-07 19:06] LABS: ERYTHROCYTE SEDIMENTATION RATE 35 mm/hr (0-30)
[2021-05-17 17:07] LABS: ANTI CENTROMERE ANTIBODY <0.2 AI (0.0-0.9); ANTI SCLERODERMA ANTIBODIES <0.2 AI (0.0-0.9); HLA-B27 Negative (.)
== END ==
LOC: M SFHCRHEU 10:42
PROVIDERS: ATTEND Internal Medicine Rheumatology
DX: R76.8 Other specified abnormal immunological findings in serum (principal); M35.3 Polymyalgia rheumatica; R06.02 Shortness of breath; R21 Rash and other nonspecific skin eruption

== ENCOUNTER → 2021-06-20 | Outpatient (CLI) | payer OTHER | LOC: M RAD 12:57 | PROVIDERS: ATTEND Internal Medicine Pulmonary Disease | DX: R06.00 Dyspnea, unspecified (principal) ==

== ENCOUNTER → 2021-06-28 | Outpatient (CLI) | payer OTHER ==
[~2021-06-28] MED LIST changes: -GASTROGRAFIN SOLUTION 30ML (Q9963) As Ordered ONE; -ISOVUE-370 76% 100ML VIAL As Ordered ONE; +METHACHOLINE KIT (J7674) INH ONE
== END ==
LOC: M CARPUL 06-26 13:03
PROVIDERS: ATTEND Internal Medicine Pulmonary Disease
DX: R06.00 Dyspnea, unspecified (principal)
CPT/HCPCS: 94070; J7674

== ENCOUNTER → 2021-06-29 | Outpatient (REF) | payer OTHER | LOC: M SFHCDERM 17:21 | PROVIDERS: ATTEND Dermatology | DX: L60.3 Nail dystrophy (principal) ==

== ENCOUNTER → 2021-10-29 | Outpatient (CLI) | payer OTHER ==
[~2021-10-29] MED LIST changes: +E-Z-GAS II EFFERVESCENT PACKET (SODIUM BICARB./CITRIC ACID/SIMETHICONE) As Ordered ONE; +E-Z-HD 98% w/w 340GM SUSP BTL As Ordered ONE; +E-Z-PAQUE 96% w/w SUSP 176GM BTL As Ordered ONE; -METHACHOLINE KIT (J7674) INH ONE
== END ==
LOC: M RAD 08:55
PROVIDERS: ATTEND Internal Medicine Gastroenterology
DX: R19.7 Diarrhea, unspecified (principal)

== ENCOUNTER → 2021-12-03 | Outpatient (CLI) | payer OTHER ==
[~2021-12-03] MED LIST changes: +DICY10CA13; -E-Z-GAS II EFFERVESCENT PACKET (SODIUM BICARB./CITRIC ACID/SIMETHICONE) As Ordered ONE; -E-Z-HD 98% w/w 340GM SUSP BTL As Ordered ONE; -E-Z-PAQUE 96% w/w SUSP 176GM BTL As Ordered ONE; +ERGO500029; +LANS30CA93; +LEXA1TAB2; +ONDA-83; +ZOLP10TA2
== END ==
LOC: M LABSMTC 10:13
PROVIDERS: ATTEND Anesthesiology
DX: Z11.52 Encounter for screening for COVID-19 (principal); Z20.822 Contact with and (suspected) exposure to COVID-19

== ENCOUNTER 2021-12-06 06:35 | Day surgery (SDC) | payer OTHER ==
[~2021-12-06] VITALS: Ht 172.7 cm; Wt 82.0 kg
[~2021-12-06 06:35] MED LIST changes: +NS 1,000 ML IV ONE
[2021-12-06] MEDS ORDERED: SIMETHICONE 40MG/0.6ML DROPS 30ML As Ordered ONE (07:20)
[2021-12-06] MEDS ORDERED: ePHEDrine SULFATE 25 MG/5 ML(5MG/ML) SYRINGE As Ordered ONE (07:38)
[2021-12-06] MEDS ORDERED: LIDOCAINE 2% 100MG/5ML SDV (FOR ANES.) As Ordered ONE (07:38)
[2021-12-06] MEDS ORDERED: fentaNYL 100 MCG/2 ML INJECTION As Ordered ONE (07:38)
[2021-12-06] MEDS ORDERED: propofoL 200 MG/20 ML VIAL As Ordered ONE (07:38)
[2021-12-06] MEDS ORDERED: PHENYLephrine 500MCG 5ML (100MCG/ML) SYRINGE As Ordered ONE (07:56)
[2021-12-06 08:30] VITALS: BP 99/56
== END 2021-12-06 08:39 | disposition home or self-care (01) ==
LOC: M OPP 06:35
PROVIDERS: ATTEND Internal Medicine Gastroenterology
DX: K63.3 Ulcer of intestine (principal); K56.699 Other intestinal obstruction unspecified as to partial versus complete obstruction; K57.30 Diverticulosis of large intestine without perforation or abscess without bleeding; K64.8 Other hemorrhoids; Z98.0 Intestinal bypass and anastomosis status; K29.70 Gastritis, unspecified, without bleeding; K30 Functional dyspepsia; J84.112 Idiopathic pulmonary fibrosis; B20 Human immunodeficiency virus [HIV] disease; Z79.891 Long term (current) use of opiate analgesic; Z79.899 Other long term (current) drug therapy; Z88.6 Allergy status to analgesic agent; Z84.89 Family history of other specified conditions; Z86.16 Personal history of COVID-19; Z90.49 Acquired absence of other specified parts of digestive tract; Z87.442 Personal history of urinary calculi
CPT/HCPCS: 43239; 45380; 88305; J2370; J3010

== ENCOUNTER → 2021-12-19 | Outpatient (CLI) | payer OTHER ==
[~2021-12-19] MED LIST changes: -NS 1,000 ML IV ONE
[2021-12-19 17:17] LABS: BASO % 0.7 % (0.0-1.0); EOS # 0.1 10^3/uL (0.0-0.5); EOS % 1.3 % (0.0-3.0); HEMATOCRIT 38.5 % (36.0-47.0); HEMOGLOBIN 11.9 g/dl (12.0-15.5); LYMPH # 1.7 10^3/uL (1.5-5.0); LYMPH % 38.7 % (24.0-44.0); MEAN CORPUSCULAR HGB CONC 30.9 g/dl (32.0-36.5); MEAN CORPUSCULAR VOLUME 93.9 fl (80.0-96.0); MONO # 0.5 10^3/uL (0.0-0.8); MONO % 10.1 % (2.0-8.0); NEUTROPHILS # 2.2 10^3/uL (1.5-8.5); NEUTROPHILS % 48.5 % (36.0-66.0); PLATELET COUNT, AUTOMATED 164 10^3/uL (150-450); WHITE BLOOD COUNT 4.5 10^3/uL (4.0-10.0)
[2021-12-19 17:27] LABS: INR 0.95
[2021-12-19 17:28] LABS: PARTIAL THROMBOPLASTIN TIME 28.4 SECONDS (25.9-37.0)
== END ==
LOC: M PLALAB 14:28
PROVIDERS: ATTEND Internal Medicine Infectious Disease
DX: R23.3 Spontaneous ecchymoses (principal)

== ENCOUNTER → 2021-12-19 | Outpatient (CLI) | payer OTHER | LOC: M PLAIMG 12:59 | PROVIDERS: ATTEND Nurse Practitioner Family | DX: M51.16 Intervertebral disc disorders with radiculopathy, lumbar region (principal); M51.26 Other intervertebral disc displacement, lumbar region; M51.27 Other intervertebral disc displacement, lumbosacral region; M47.816 Spondylosis without myelopathy or radiculopathy, lumbar region ==

== ENCOUNTER → 2022-01-31 | Outpatient (CLI) | payer OTHER | LOC: M PAIN 14:15 | PROVIDERS: ATTEND Nurse Practitioner Family | DX: M51.16 Intervertebral disc disorders with radiculopathy, lumbar region (principal); B20 Human immunodeficiency virus [HIV] disease; F32.9 Major depressive disorder, single episode, unspecified; E88.81 Metabolic syndrome and other insulin resistance; G47.00 Insomnia, unspecified; K58.0 Irritable bowel syndrome with diarrhea; E66.9 Obesity, unspecified; Z68.26 Body mass index [BMI] 26.0-26.9, adult; Z79.891 Long term (current) use of opiate analgesic; Z79.899 Other long term (current) drug therapy; Z88.6 Allergy status to analgesic agent; J30.2 Other seasonal allergic rhinitis ==

== ENCOUNTER → 2022-02-04 | Outpatient (CLI) | payer OTHER ==
[2022-02-04 14:50] LABS: ALBUMIN 3.8 GM/DL (3.2-5.2); ALT/SGPT 26 U/L (12-78); BILIRUBIN,TOTAL 0.5 MG/DL (0.2-1.0); BLOOD UREA NITROGEN 13 MG/DL (7-18); CALCIUM LEVEL 9.4 MG/DL (8.5-10.1); CARBON DIOXIDE LEVEL 29 MEQ/L (21-32); CHLORIDE LEVEL 108 MEQ/L (98-107); CREATININE FOR GFR 0.73 MG/DL (0.55-1.30); GLOMERULAR FILTRATION RATE > 60.0 (>51); GLUCOSE, FASTING 98 MG/DL (70-100); POTASSIUM SERUM 4.7 MEQ/L (3.5-5.1); SODIUM LEVEL 141 MEQ/L (136-145); TOTAL PROTEIN 7.2 GM/DL (6.4-8.2)
[2022-02-06 04:11] LABS: % CD8 Pos Lymph 41.1 % (12.0-35.5); %CD4 Pos Lymphs 33.4 % (30.8-58.5); ABS Eosinophils 0.1 x10E3/uL (0.0-0.4); ABS Lymphs 1.3 x10E3/uL (0.7-3.1); ABS Monocytes 0.4 x10E3/uL (0.1-0.9); ABS Neutophils 2.6 x10E3/uL (1.4-7.0); Abs CD4 Helper 434 /uL (359-1519); Abs CD8 Suppres 534 /uL (109-897); CD4/CD8 Ratio 0.81 (0.92-3.72); Eosinophils 1 % (Not Estab.); HCT 39.7 % (34.0-46.6); HIV-1 RNA PCR QUANT 2 LC550285 50 copies/mL (.); HIV-1 RNA PCR QUANT 3 LC550285 1.699 (.); Immature Grans 1 % (Not Estab.); Lymphocytes 30 % (Not Estab.); MCH 29.7 pg (26.6-33.0); MCHC 32.7 g/dL (31.5-35.7); MCV 91 fL (79-97); Monocytes 8 % (Not Estab.); Neutrophils 59 % (Not Estab.); Platelets 158 x10E3/uL (150-450); RBC 4.37 x10E6/uL (3.77-5.28); WBC 4.3 x10E3/uL (3.4-10.8)
== END ==
LOC: M PLALAB 09:29
PROVIDERS: ATTEND Internal Medicine Infectious Disease
DX: B20 Human immunodeficiency virus [HIV] disease (principal)

== ENCOUNTER → 2022-02-13 | Outpatient (CLI) | payer OTHER | LOC: M TMPAIN 13:30 → M PAIN 13:30 | PROVIDERS: ATTEND Anesthesiology | DX: M79.10 Myalgia, unspecified site (principal); M79.18 Myalgia, other site; M54.50 Low back pain, unspecified; M25.552 Pain in left hip; B20 Human immunodeficiency virus [HIV] disease; F32.9 Major depressive disorder, single episode, unspecified; B00.9 Herpesviral infection, unspecified; E88.81 Metabolic syndrome and other insulin resistance; G47.00 Insomnia, unspecified; K58.0 Irritable bowel syndrome with diarrhea; J30.2 Other seasonal allergic rhinitis; K64.9 Unspecified hemorrhoids; E66.9 Obesity, unspecified; Z88.6 Allergy status to analgesic agent; Z79.891 Long term (current) use of opiate analgesic; Z79.899 Other long term (current) drug therapy ==

== ENCOUNTER → 2022-03-05 | Outpatient (CLI) | payer OTHER | LOC: M PAIN 08:30 | PROVIDERS: ATTEND Anesthesiology | DX: M24.20 Disorder of ligament, unspecified site (principal); M51.16 Intervertebral disc disorders with radiculopathy, lumbar region; G89.29 Other chronic pain; Z86.59 Personal history of other mental and behavioral disorders; Z98.84 Bariatric surgery status; Z88.6 Allergy status to analgesic agent; Z79.899 Other long term (current) drug therapy | CPT/HCPCS: 76000; G0463 ==

== ENCOUNTER → 2022-03-18 | Outpatient (RCR) | payer OTHER ==
[~2022-03-18] MED LIST changes: +CABO6SUS; +DOXY100T; +TRAM50TA2
== END ==
LOC: M PT 03-07 13:43
PROVIDERS: ATTEND Nurse Practitioner Family
DX: M51.16 Intervertebral disc disorders with radiculopathy, lumbar region (principal)

== ENCOUNTER → 2022-04-17 | Outpatient (RCR) | payer OTHER | LOC: M PT 03-22 07:26 | PROVIDERS: ATTEND Nurse Practitioner Family | DX: M51.16 Intervertebral disc disorders with radiculopathy, lumbar region (principal) ==

== ENCOUNTER 2022-05-17 07:00 | Outpatient (RCR) | payer OTHER | END 2022-05-18 | LOC: M PT 07:00 | PROVIDERS: ATTEND Nurse Practitioner Family | DX: M51.16 Intervertebral disc disorders with radiculopathy, lumbar region (principal) ==

== ENCOUNTER → 2022-05-30 | Outpatient (CLI) | payer OTHER | LOC: M LABSMTC 09:52 | PROVIDERS: ATTEND Anesthesiology | DX: Z01.812 Encounter for preprocedural laboratory examination (principal); Z11.52 Encounter for screening for COVID-19 ==

== ENCOUNTER → 2022-06-04 | Outpatient (CLI) | payer OTHER ==
[~2022-06-04] MED LIST changes: +BUPIVACAINE HCL 0.25% 30ML VIAL As Ordered ONE; +ISOVUE-M 300 61% 15ML VIAL As Ordered ONE; +LIDOCAINE 1% SDV 30ML VIAL As Ordered ONE; +NORCO, ANEXSIA 5/325MG TABLET (HYDROcodone/ACETAMINOPHEN) As Ordered ONE; +TRIAMCINOLONE ACETONIDE SUSP 40MG/ML 1ML VIAL As Ordered ONE; +diazePAM 5MG TABLET As Ordered ONE
== END ==
LOC: M PAIN 08:00
PROVIDERS: ATTEND Anesthesiology
DX: M24.20 Disorder of ligament, unspecified site (principal); M79.10 Myalgia, unspecified site; M79.18 Myalgia, other site; M54.50 Low back pain, unspecified; M25.552 Pain in left hip; B20 Human immunodeficiency virus [HIV] disease; F32.9 Major depressive disorder, single episode, unspecified; B00.9 Herpesviral infection, unspecified; E88.81 Metabolic syndrome and other insulin resistance; G47.00 Insomnia, unspecified; K58.0 Irritable bowel syndrome with diarrhea; J30.2 Other seasonal allergic rhinitis; K64.9 Unspecified hemorrhoids; E66.9 Obesity, unspecified; Z88.6 Allergy status to analgesic agent; Z79.891 Long term (current) use of opiate analgesic; Z79.899 Other long term (current) drug therapy

== ENCOUNTER 2022-06-14 07:00 | Outpatient (RCR) | payer OTHER ==
[~2022-06-14 07:00] MED LIST changes: -BUPIVACAINE HCL 0.25% 30ML VIAL As Ordered ONE; -ISOVUE-M 300 61% 15ML VIAL As Ordered ONE; -LIDOCAINE 1% SDV 30ML VIAL As Ordered ONE; -NORCO, ANEXSIA 5/325MG TABLET (HYDROcodone/ACETAMINOPHEN) As Ordered ONE; -TRIAMCINOLONE ACETONIDE SUSP 40MG/ML 1ML VIAL As Ordered ONE; -diazePAM 5MG TABLET As Ordered ONE
== END 2022-06-18 ==
LOC: M PT 07:00
PROVIDERS: ATTEND Nurse Practitioner Family
DX: M51.16 Intervertebral disc disorders with radiculopathy, lumbar region (principal)

== ENCOUNTER → 2022-07-09 | Outpatient (CLI) | payer OTHER | LOC: M PAIN 14:15 | PROVIDERS: ATTEND Nurse Practitioner Family | DX: G89.29 Other chronic pain (principal); M24.20 Disorder of ligament, unspecified site; Z86.59 Personal history of other mental and behavioral disorders; Z88.6 Allergy status to analgesic agent; Z79.899 Other long term (current) drug therapy ==

== ENCOUNTER → 2022-07-11 | Outpatient (REF) | payer OTHER ==
[2022-07-11 16:37] LABS: BASO % 0.3 % (0.0-1.0); EOS % 0.5 % (0.0-3.0); HEMATOCRIT 46.3 % (36.0-47.0); HEMOGLOBIN 14.8 g/dl (12.0-15.5); LYMPH # 1.3 10^3/uL (1.5-5.0); LYMPH % 22.1 % (24.0-44.0); MEAN CORPUSCULAR HEMOGLOBIN 33.4 pg (27.0-33.0); MEAN CORPUSCULAR VOLUME 104.5 fl (80.0-96.0); MONO # 0.5 10^3/uL (0.0-0.8); MONO % 7.6 % (2.0-8.0); NEUTROPHILS # 4.2 10^3/uL (1.5-8.5); PLATELET COUNT, AUTOMATED 198 10^3/uL (150-450); RED BLOOD COUNT 4.43 10^6/uL (4.00-5.40); WHITE BLOOD COUNT 6.1 10^3/uL (4.0-10.0)
[2022-07-11 16:57] LABS: ERYTHROCYTE SEDIMENTATION RATE 20 mm/hr (0-30)
[2022-07-11 17:08] LABS: CPK CREATINE PHOSPHOKINASE 64 U/L (34-145); LDH LACTATE DEHYDROGENASE 210 U/L (120-246)
[2022-07-11 17:12] LABS: ALBUMIN 3.4 G/DL (3.2-5.2); ALKALINE PHOSPHATASE 124 U/L (46-116); ALT/SGPT 36 U/L (7.0-40); AST/SGOT 20 U/L (<34); BILIRUBIN,TOTAL 0.3 MG/DL (0.3-1.2); BLOOD UREA NITROGEN 18 MG/DL (9-23); CALCIUM LEVEL 9.1 MG/DL (8.5-10.1); CARBON DIOXIDE LEVEL 34 MMOL/L (20-31); CHLORIDE LEVEL 102 MMOL/L (98-107); CREATININE FOR GFR 0.68 MG/DL (0.55-1.30); GLOMERULAR FILTRATION RATE > 60.0 (>51); GLUCOSE, FASTING 94 MG/DL (60-100); SODIUM LEVEL 140 MMOL/L (136-145); TOTAL PROTEIN 6.6 G/DL (5.7-8.2)
== END ==
LOC: M SFHCRHEU 15:30
PROVIDERS: ATTEND Internal Medicine Rheumatology
DX: R76.8 Other specified abnormal immunological findings in serum (principal); M35.3 Polymyalgia rheumatica; R06.02 Shortness of breath; R21 Rash and other nonspecific skin eruption; R74.8 Abnormal levels of other serum enzymes

== ENCOUNTER → 2022-09-06 | Outpatient (CLI) | payer OTHER | LOC: M PAIN 14:30 | PROVIDERS: ATTEND Nurse Practitioner Family | DX: M24.20 Disorder of ligament, unspecified site (principal); G89.29 Other chronic pain; Z86.59 Personal history of other mental and behavioral disorders; Z88.6 Allergy status to analgesic agent; Z79.899 Other long term (current) drug therapy; B20 Human immunodeficiency virus [HIV] disease; G47.00 Insomnia, unspecified; E66.9 Obesity, unspecified; Z79.891 Long term (current) use of opiate analgesic ==